=== PATIENT | female | born 2000 | race African-American/Black ===

== ENCOUNTER 2020-01-07 13:19 | Emergency (ER) | payer BC ==
--- NOTE | 2020-01-07 14:01 | RAD ---
Exam: Chest one view HISTORY:Shortness of breath. COVID positive patient Comparison: None FINDINGS: Cardiac silhouette: Normal Aorta: Unremarkable Pulmonary vessels: Normal Costophrenic angles: Clear LUNGS: No masses or consolidation. Pneumothorax: None Osseous abnormalities: None IMPRESSION: No acute cardiopulmonary process.
[2020-01-07] MEDS ORDERED: Dexamethasone 10 MG/ML VIAL ONE (14:23)
[2020-01-07] MEDS ORDERED: Acetaminophen 500 MG TAB ONE (14:23)
== END 2020-01-07 14:47 | disposition home or self-care (01) ==
LOC: ERS 13:19
DX: U07.1 COVID-19 (principal)
CPT/HCPCS: 71045; J1100